=== PATIENT | female | born 1990 | race Caucasian/White ===

== ENCOUNTER 2018-06-14 13:35 | Inpatient (IN) | payer MEDICAID ==
[2018-06-14] MEDS ORDERED: Buffered Lidocaine 1% SYRIN* 1 ML/SYRINGE INTRADERM ONE (14:42)
[2018-06-14] MEDS ORDERED: Lactated Ringers 1000 ML Bag* 1,000 ML IV ONE (14:42)
--- NOTE | 2018-06-14 14:51 | HP ---
General Information - Reason for Visit SROM - General Information Maternal Age: 27 Grav: 2 Para: 1 SAB: 0 IEA: 0 Estimated Due Date: 06/18/18 Determined By: LMP Maternal Blood Type and Rh: A Positive - Results this Serology/RPR Result: Non-Reactive Rubella Result: Non-Immune HBsAg Result: Negative HIV Result: Negative GBS Culture Result: Negative Past Medical History Delivery History: Hx Uncomplicated Vaginal Delivery Pertinent Past Medical History: See Records - inguinal hernia, hx endometrial polyps Pertinent Past Surgical History: None Pertinent Family History: Non-Contributory - Antepartal Records Antepartal Records: Reviewed, Uncomplicated Review of Systems Constitutional: Comfortable CV Complaint: No Respiratory: Shortness of Breath: No Gastrointestinal: No Nausea/Vomiting, Normal Bowel Movement Genitourinary: Leaking Fluid, No Dysuria, No Bleeding, Spotting Musculoskeletal: No Epigastric Pain, Contractions Neurological: No Headache, No Visual Changes Movement: Normal Exam T:98.3 - Measurements Height: 5 ft 8 in Weight: 159 lb Weight in lbs: [phone] Body Mass Index (BMI): 24.1 Pre- Weight: 135 lb Weight Gained This : 24 lbs and 0 ozs - Exam Breast: Breast Exam Deferred CVA: No CVA Tenderness Extremities: No Edema Heart: Normal Rhythm/Heart Sounds HEENT: No Significant Findings Lungs: Clear Bilaterally Rectal: Rectal Exam Deferred Reflexes: DTR 2+ Thyroid: No Thyromegaly - Abdominal Exam Abdomen Exam: Non-Tender, Fundal Height Consistent with Dates - Ultrasound/Biophysical Profile Ultrasound Status: Not Done Targeted Exam Findings Estimated Weight: 7lbs 6oz Cervical Exam: 3cm Effacement: 90% Station: 0 Presenting Part: Vertex Membrane Status: Leaking Amniotic Fluid Evaluation: Gross Rupture, Clear, Bloody Bleeding/Discharge: Bloody Show EFM Findings - External Monitor Findings Baseline Heart Rate: 135 External Monitor Findings: Accelerations Present, No Pattern of Variable or Late Decelerations, Variability Moderate, Baseline Stable Contractions: Irregular, Regular, Mild, < 45 Seconds, 45-90 Seconds Contraction Frequency: 8-10 Assessment/Plan - Assessment , 39w3d EGA, SROM, early labor - Plan Plan: Admit - Anticipate Vaginal Delivery - Date/Time of Admission Date of Admission: 06/14/18 Time of Admission: 14:30
[2018-06-14] MEDS ORDERED: Lactated Ringers 1000 ML Bag* 1,000 ML IV SCH (15:00)
--- NOTE | 2018-06-14 18:46 | PN ---
Progress Note - Progress Note Date of Service: 06/14/18 SOAP: Subjective: [Pt reports contractions shorter but more regular when standing, still mild. Pt reports continued LOF. Pt elects to continue with cervidil for cervical ripening.] Objective: [P:102, FHR: 130 bpm, + accels, -decels, moderate variability, ctx q 6-8 minutes , mild.] Assessment: [27 y.o. , 39w3d EGA, early labor, SROM] Plan: [1) Discussed risks versus benefits of augmentation versus expectant mgmt and ot agrees to continue with cervidil 2) Reevaluate PRN]
[2018-06-14] MEDS ORDERED: Dinoprostone* 10 MG VAG.SUPP VAGINAL ONE (19:00)
--- NOTE | 2018-06-15 00:24 | PN ---
Progress Note - Progress Note Date of Service: 06/15/18 SOAP: Subjective: [Pt reports increased pressure and contractions increasing in intensity and frequency. Pt requests pain management.] Objective: [BP:114/64, T:98.7, P:87, FHR: 125bpm, + accels, occasional variables, moderate variability, ctx q 2-4 min cervix: 6-7/100/0] Assessment: [27 y.o. , active labor [id number]] Plan: [1) Reviewed options and pt elects to try nitrous oxide while IV is placed, CBC and type and screen drawn and fluid hung for epidural if no relief with nitrous oxide. Reviewed R/B. 2) Anticipate vaginal delivery ]
[2018-06-15 00:55] LABS: ABS Basophils 0.1 10^3/ul (0-0.2); ABS Eosinophils 0 10^3/ul (0-0.6); ABS Monocytes 0.9 10^3/ul (0-0.8); ABS Neutrophils 9.4 10^3/ul (1.5-7.7); ABS Nucleated RBC 0 10^3/ul; Eosinophil % 0.3 %; Hematocrit 39 % (33-41); Hemoglobin 12.9 g/dL (12.0-16.0); Lymphocyte % 22.5 %; Mean Corpuscular HGB Conc 33 g/dL (31-36); Mean Corpuscular Hemoglobin 30 pg (27-31); Mean Corpuscular Volume 91 fL (80-97); Mean Platelet Volume 8.8 fL (7.4-10.4); Nucleated Red Blood Cells % 0; Platelet Count 183 10^3/uL (150-450); Red Blood Count 4.27 10^6 /uL (3.70-4.87); Red Cell Distribution Width 14 % (10.5-15); White Blood Count 13.5 10^3/uL (3.5-10.8)
[2018-06-15] MEDS ORDERED: Lidocaine 2% VISCOUS* 15 ML UDC ONE (00:59)
[2018-06-15] MEDS ORDERED: Oxytocin in LR* 20 UNITS/1,000 ML BAG IVPB ONE (01:09)
[2018-06-15] MEDS ORDERED: Dibucaine 1% 28.35 GM TUBE PR PRN (01:27)
[2018-06-15] MEDS ORDERED: Glycerin ADULT SUPP PR PRN (01:27)
[2018-06-15] MEDS ORDERED: Acetaminophen TAB* 325 MG PO PRN (01:27)
[2018-06-15] MEDS ORDERED: Witch Hazel PAD* JAR TOPICAL PRN (01:27)
--- NOTE | 2018-06-15 01:30 | PROCNOTE ---
[facility] OB: Delivery Note - Delivery A Date of : 06/15/18 Time of : 01:04 Sex: Male Score 1 Minute: 5 Score 5 Minutes: 9 Gestational Age in Weeks and Days at Delivery: 39 Weeks and 4 Days Delivery Method: Spontaneous Vaginal Labor: Spontaneous Amniotic Fluid: Clear Estimated Blood Loss: 200 Anesthesia/Analgesia: Nitrous-Labor Delivered By: Kacey Arellano - Nursery Level of Nursery: Regular/Bedside - Perineum Perineal Injury: Perineal Laceration, 1st Degree Perineal Repair: By Delivering Practioner - Events Delivery Events of Note: Pitocin Only After Delivery, ROM > 24 Hours - Additional Delivery Notes Additional Delivery Notes: nuchal cord x 1, easily reduced
[2018-06-15] MEDS ORDERED: Lactated Ringers 1000 ML Bag* 1,000 ML IV SCH (02:00)
[2018-06-15] MEDS ORDERED: Lidocaine 1% INJ* 10 MG/ML 30 ML SDV ONE (03:21)
[2018-06-15] MEDS: Docusate CAP* 100 MG PO SCH ×2 (08:22→14:43)
[2018-06-15] MEDS: Ibuprofen TAB* 600 MG PO PRN ×2 (08:57→18:17)
[2018-06-15] MEDS: Simethicone TAB* 80 MG TAB.CHEW PO SCH (15:13)
[2018-06-16] MEDS: Ibuprofen TAB* 600 MG PO PRN ×4 (00:35→22:04)
[2018-06-16] MEDS: Docusate CAP* 100 MG PO SCH ×4 (00:35→22:03)
[2018-06-16 07:20] LABS: ABS Basophils 0.1 10^3/ul (0-0.2); ABS Eosinophils 0.1 10^3/ul (0-0.6); ABS Lymphocytes 3.2 10^3/ul (1.0-4.8); ABS Monocytes 0.6 10^3/ul (0-0.8); ABS Neutrophils 8.1 10^3/ul (1.5-7.7); ABS Nucleated RBC 0 10^3/ul; Eosinophil % 1.2 %; Hematocrit 31 % (33-41); Hemoglobin 10.4 g/dL (12.0-16.0); Lymphocyte % 26.4 %; Mean Corpuscular HGB Conc 34 g/dL (31-36); Mean Corpuscular Hemoglobin 31 pg (27-31); Mean Corpuscular Volume 90 fL (80-97); Mean Platelet Volume 8.4 fL (7.4-10.4); Nucleated Red Blood Cells % 0; Platelet Count 151 10^3/uL (150-450); Red Blood Count 3.42 10^6 /uL (3.70-4.87); Red Cell Distribution Width 14 % (10.5-15); White Blood Count 12.2 10^3/uL (3.5-10.8)
[2018-06-16] MEDS ORDERED: Ferrous Gluconate TAB* 324 MG TAB PO SCH (09:00)
[2018-06-17] MEDS: Ibuprofen TAB* 600 MG PO PRN (06:18)
[2018-06-17] MEDS ORDERED: Measles, Mumps,Rubella VACC* 0.5 ML/VIAL SUBCUT ONE (09:08)
[2018-06-17] MEDS: Docusate CAP* 100 MG PO SCH (09:12)
[2018-06-17 09:43] VITALS: BP 100/64
== END 2018-06-17 12:05 | disposition home or self-care (01) | DRG 560 ==
LOC: MCHOBOUT 13:35 → MCHOB 14:37
PROVIDERS: ADMIT Midwife; ATTEND Midwife
PROC: 4A1HXCZ Monitoring of Products of Conception, Cardiac Rate, External Approach (ICD-10-PCS; 2018-06-14)
PROC: 3E0P7VZ Introduction of Hormone into Female Reproductive, Via Natural or Artificial Opening (ICD-10-PCS; 2018-06-14)
PROC: 10E0XZZ Delivery of Products of Conception, External Approach (ICD-10-PCS; principal; 2018-06-15)
PROC: 0HQ9XZZ Repair Perineum Skin, External Approach (ICD-10-PCS; 2018-06-15)
DX: O69.81X0 Labor and delivery complicated by cord around neck, without compression, not applicable or unspecified (principal); Z37.0 Single live birth; O70.0 First degree perineal laceration during delivery; Z3A.39 39 weeks gestation of pregnancy
CPT/HCPCS: 36415; 85025; 86850; 86900; 86901; 90707; A9270-GY